=== PATIENT | female | born 1950 | race Caucasian/White ===

== ENCOUNTER 2016-09-25 08:29 | Emergency (ER) | payer MEDICARE, OTHER ==
[2016-09-25 08:57] VITALS: BP 112/64
--- NOTE | 2016-09-25 12:55 | UC ---
Moi Noyola Claudia, scribed for Florencia Yusuf DO on 09/25/16 at 0905 . Complaint Female HPI - HPI Summary HPI Summary: 66 year old female presents to the [facility] with Sx. Pt notes sudden onset of Sx yesterday am. She admits to,dysuria, odorous urine, urgency and frequency of urination. Pt denies fever, chills, cough, SOB, CP, abd pain, back pain, hematuria, N/V/D. Pt thinks her Sx are similar to UTI. Pt notes that she has frequent UTI's and had her last one in July. She notes that she has had 4-5 UTI's in the last year. Pt also notes that she takes a daily probiotic as well. PMHx of Kidney Stones - History Of Current Complaint Chief Complaint: UCGU Stated Complaint: UTI Hx Obtained From: Patient Hx Last Menstrual Period: N/A Onset/Duration: Sudden Onset, Lasting Days, Still Present Timing: Constant Severity Initially: Mild Severity Currently: Mild Character: Burning Aggravating Factor(s): Nothing Alleviating Factor(s): Nothing Associated Signs And Symptoms: Negative: Fever, Back Pain, Vaginal Bleeding/ Discharge, Vaginal Discharge, Nausea - Allergies/Home Medications Allergies/Adverse Reactions: Allergies Allergy/AdvReac Type Severity Reaction Status Date / Time Celecoxib [From Celebrex] Allergy Intermediate Hives Verified 09/25/16 08:48 Sulfa Drugs Allergy Intermediate Hives Verified 09/25/16 08:48 Fentanyl AdvReac Intermediate Vomiting Verified 09/25/16 08:48 Tramadol AdvReac Intermediate Nausea And Verified 09/25/16 08:48 Vomiting PMH/Surg Hx/FS Hx/Imm Hx Previously Healthy: Yes Endocrine History Of: Denies: Diabetes, Thyroid Disease, Hyperthyroidism, Hypothyroidism, Dyslipidemia Cardiovascular History Of: Denies: Cardiac Disorders, Hypertension - QUESTIONABLE, Pacemaker/ICD, Myocardial Infarction, Congestive Heart Failure, Atrial Fibrillation, Deep Vein Thrombosis, Bleeding Disorders Respiratory History Of: Denies: COPD, Asthma, Bronchitis, Pneumonia, Pulmonary Embolism GI/ History Of: Reports: Gastroesophageal Reflux, Ulcer - stomach Denies: Gastrointestinal Bleed, Gall Bladder Disease, Kidney Stones, Diverticulitis, Renal Disease, Urosepsis Neurological History Of: Reports: Migraine Denies: TIA, CVA, Dementia, Seizures Psychological History Of: Denies: Anxiety, Depression, Bipolar Disorder, Schizophrenia, Post Traumatic Stress Disorder Cancer History Of: Denies: Lung Cancer, Colorectal Cancer, Breast Cancer, Prostate Cancer, Cervical Cancer Other History Of: Negative For: HIV, Hepatitis B, Hepatitis C, Anticoagulant Therapy - Surgical History Surgical History: Yes Surgery Procedure, Year, and Place: LASIX eye surgeryHYSTERECTOMYKIDNEY STONE - SURG REMOVED IN URETERVARICOSE VEINSBREAST BIOPSY - Lt - REMOVED LUMP - QUESTIONABLE CANCEROUSBREAST BIOPSY - Rt - BENIGN - Family History Known Family History: Positive: Cardiac Disease, Hypertension, Other - daughter w/ breast cancer Negative: Diabetes - Social History Occupation: Retired Lives: With Family Alcohol Use: None Substance Use Type: None Substance Use Comment - Amount & Last Used: Nucynta Smoking Status (MU): Never Smoked Tobacco Review of Systems Constitutional: Negative - No fever chills Skin: Negative Eyes: Negative ENT: Negative Respiratory: Negative - No SOB, cough Cardiovascular: Negative - No CP Gastrointestinal: Negative - No abd pain, N/V/D. Genitourinary: Dysuria, Frequency, Urgency Motor: Negative Neurovascular: Negative Musculoskeletal: Negative Neurological: Negative Psychological: Negative All Other Systems Reviewed And Are Negative: Yes Physical Exam Triage Information Reviewed: Yes Appearance: Well-Appearing - appears younger than stated age, No Pain Distress, Well-Nourished Vital Signs: Initial Vital Signs Temp 99.5 F 09/25/16 08:51 Pulse 72 09/25/16 08:51 Resp 16 09/25/16 08:51 BP 112/64 09/25/16 08:51 Pulse Ox 95 09/25/16 08:51 Vital Signs Reviewed: Yes Eye Exam: Normal Eyes: Positive: Conjunctiva Clear. Negative: Discharge ENT Exam: Normal ENT: Positive: Hearing grossly normal. Negative: Muffled/hoarse voice Neck exam: Normal Neck: Positive: Supple Respiratory Exam: Normal Respiratory: Positive: Lungs clear, Normal breath sounds, No respiratory distress, No accessory muscle use Cardiovascular Exam: Normal Cardiovascular: Positive: RRR, No Murmur Abdominal Exam: Normal Abdomen Description: Positive: Nontender, Soft. Negative: CVA Tenderness (R), CVA Tenderness (L), Distended, Guarding Bowel Sounds: Positive: Present Musculoskeletal Exam: Normal Musculoskeletal: Positive: Strength Intact Neurological Exam: Normal Neurological: Positive: Alert, Muscle Tone Normal Psychological Exam: Normal Psychological: Positive: Age Appropriate Behavior Skin Exam: Normal, Other - dr, warm, nml color Complaint Female Dx - Differential Dx/Diagnosis Differential Diagnosis/HQI/PQRI: Renal Colic, Urinary Tract Infection Provider Diagnoses: uti, hematuria Discharge - Discharge Plan Condition: Stable Disposition: HOME Prescriptions: Ciprofloxacin TAB* [Cipro Tab*] 250 mg PO BID #6 tab Patient Education Materials: Urinary Tract Infection in Women (ED), Hematuria ( ED) Referrals: Chhaya Murillo MD [Primary Care Provider] - (FOLLOW UP IN 2 DAYS IF NOT IMPROVING. OTHERWISE FOLLOW UP IN 2 WEEKS.) Additional Instructions: CIPROFLOXACIN: You have been given a new antibacterial agent, ciprofloxacin (Cipro). This medicine is not related to the penicillins, sulfas, cephalosporins, or tetracyclines. It is often given to patients who are allergic to these drugs. It has been chosen for you either because other drugs are not appropriate, or because of the nature of your problem. Cipro should not be taken with antacids, as these can decrease its effectiveness. It can be taken without regard to meals. CIPRO SHOULD NOT BE TAKEN BY CHILDREN, NURSING WOMEN, OR WOMEN. Although Cipro is usually well-tolerated, common side effects can include nausea and diarrhea. Contact your doctor if you experience any unusual symptoms while on this medication, such as joint pain or swelling, shortness of breath, wheezing, faintness, or hives. ANY TIME YOU TAKE AN ANTIBIOTIC, IT IS IMPORTANT TO REPLENISH THE BODY'S BALANCE OF "GOOD" BACTERIA BY EATING HIGH QUALITY CULTURED FOOD SUCH YOGURT, SAURKRAUT OR BON CHI AND/OR TAKING A PROBIOTIC SUPPLEMENT. The documentation as recorded by the Moi powell Claudia accurately reflects the service I personally performed and the decisions made by , Florencia Yusuf DO.
== END 2016-09-25 10:31 | disposition home or self-care (01) ==
LOC: UCEAST 08:29
DX: N39.0 Urinary tract infection, site not specified (principal); R31.9 Hematuria, unspecified; Z87.442 Personal history of urinary calculi; Z79.899 Other long term (current) drug therapy; Z88.2 Allergy status to sulfonamides
CPT/HCPCS: 81002; 87077; 87086; 87186; 99212; G0463

== ENCOUNTER 2017-03-26 08:24 | Emergency (ER) | payer MEDICARE, OTHER ==
[2017-03-26 08:35] VITALS: BP 130/76
--- NOTE | 2017-03-26 10:35 | UC ---
Kevin Noyola Angela, scribed for Dickson Smith MD on 03/26/17 at 0849 . Complaint Female HPI - HPI Summary HPI Summary: This pt is a 66 y/o female presenting to [facility] c/o dysuria and urinary frequency x1 week, worsening since yesterday. Pt reports associated mild lower back and mild low abd pain. Pt states that last weekend her symptoms were moderate and yesterday they worsened. Pt notes she has frequent UTIs and these symptoms are similar. She denies hematuria, fever, chills, diarrhea, nausea, vomiting. Pt reports a PMHx of kidney stones, but today's pain are not consistent with prior episode. - History Of Current Complaint Chief Complaint: UCGU Stated Complaint: UTI COMPLAINT Time Seen by Provider: 03/26/17 08:35 Hx Obtained From: Patient Hx Last Menstrual Period: N/A Onset/Duration: Lasting Days Timing: Constant Associated Signs And Symptoms: Positive: Back Pain. Negative: Fever, Vaginal Bleeding/Discharge, Nausea - Allergies/Home Medications Allergies/Adverse Reactions: Allergies Allergy/AdvReac Type Severity Reaction Status Date / Time Celecoxib [From Celebrex] Allergy Intermediate Hives Verified 03/26/17 08:28 Sulfa Drugs Allergy Intermediate Hives Verified 03/26/17 08:28 Fentanyl AdvReac Intermediate Vomiting Verified 03/26/17 08:28 Tramadol AdvReac Intermediate Nausea And Verified 03/26/17 08:28 Vomiting PMH/Surg Hx/FS Hx/Imm Hx GI/ History: Ulcer - stomach, Kidney Stones Other History Of: Negative For: HIV, Hepatitis B, Hepatitis C, Anticoagulant Therapy - Surgical History Surgical History: Yes Surgery Procedure, Year, and Place: LASIX eye surgeryHYSTERECTOMYKIDNEY STONE - SURG REMOVED IN URETERVARICOSE VEINSBREAST BIOPSY - Lt - REMOVED LUMP - QUESTIONABLE CANCEROUSBREAST BIOPSY - Rt - BENIGN - Family History Known Family History: Positive: Cardiac Disease, Hypertension, Other - daughter w/ breast cancer Negative: Diabetes - Social History Alcohol Use: None Substance Use Type: None Substance Use Comment - Amount & Last Used: Nucynta Smoking Status (MU): Never Smoked Tobacco Review of Systems Constitutional: Negative - fever, chills Skin: Negative ENT: Negative Respiratory: Negative Cardiovascular: Negative Gastrointestinal: Negative - diarrhea, vomiting, nausea, Other - POSITIVE: lower abd pain Genitourinary: Dysuria, Frequency Neurovascular: Negative Musculoskeletal: Negative Neurological: Negative All Other Systems Reviewed And Are Negative: Yes Physical Exam Triage Information Reviewed: Yes Vital Signs: Initial Vital Signs Temp 98.6 F 03/26/17 08:30 Pulse 72 03/26/17 08:30 Resp 16 03/26/17 08:30 BP 130/76 03/26/17 08:30 Pulse Ox 98 03/26/17 08:30 Vital Signs Reviewed: Yes - Additional Comments General: well-appearing, no acute distress Skin: warm, color reflects adequate perfusion, dry Head: normal Eyes: EOMI, DIAMOND ENT: normal Neck: supple, nontender Respiratory: CTA, breath sounds present Cardiovascular: RRR Abdomen: soft, minimal suprapubic tenderness to palpation. Bowel: present Musculoskeletal: normal, strength/ROM intact. Minimal right CVA tenderness to percussion. Neurological: normal, sensory/motor intact, A&O x3 Psychological: affect/mood appropriate Complaint Female Dx - Course Course Of Treatment: This pt is a 66 y/o female presenting to [facility] c/o dysuria and urinary frequency x1 week, worsening since yesterday. Pt reports associated mild lower back and mild low abd pain. Pt states that last weekend her symptoms were moderate and yesterday they worsened. Pt notes she has frequent UTIs and these symptoms are similar. She denies fever, chills, diarrhea, nausea, vomiting. Pt reports a PMHx of kidney stones, but today's pain are not consistent with prior episode. Elevated BP noted and advised to follow up with PCP. Medications reviewed. Urinalysis is consistent with UTI. Pt will be discharged with Macrobid and Pyridium. MEDICATIONS REVIEWED - Differential Dx/Diagnosis Provider Diagnoses: Urinary tract infection Discharge - Discharge Plan Condition: Stable Disposition: HOME Prescriptions: Nitrofurantoin Monohyd Macro [Macrobid] 100 mg PO BID #20 cap Phenazopyridine 200 mg (NF) [Pyridium 200 MG tab *] 200 mg PO TID PRN #10 tab PRN Reason: Pain Patient Education Materials: Urinary Tract Infection in Women (ED) Referrals: Chhaya Murillo MD [Primary Care Provider] - Additional Instructions: FOLLOW UP WITH YOUR DOCTOR. GET RECHECKED FOR ANY WORSENING OF YOUR CONDITION; PAIN, FEVER, YOU FEEL ILL OR QUESTIONS OR CONCERNS. The documentation as recorded by the Kevin powell Angela accurately reflects the service I personally performed and the decisions made by me, Dickson Smith MD.
== END 2017-03-26 08:57 | disposition home or self-care (01) ==
LOC: UCEAST 08:24
DX: N39.0 Urinary tract infection, site not specified (principal); Z87.442 Personal history of urinary calculi; Z88.5 Allergy status to narcotic agent; Z88.2 Allergy status to sulfonamides
CPT/HCPCS: 81003; 87077; 87086; 87186; 99212; G0463

== ENCOUNTER 2017-04-16 07:47 | Emergency (ER) | payer MEDICARE, OTHER ==
[2017-04-16 08:08] VITALS: BP 150/92
--- NOTE | 2017-04-16 08:16 | UC ---
Complaint Female HPI - HPI Summary HPI Summary: YESTERDAY URINARY FREQUENCY, URGENCY, BURNING WITH URINATION, FREQUENCY. NO FEVER. NO BACK PAIN. NO ABDOMINAL PAIN. - History Of Current Complaint Chief Complaint: UCGU Stated Complaint: URINARY ISSUE Time Seen by Provider: 04/16/17 08:00 Hx Obtained From: Patient Hx Last Menstrual Period: N/A Onset/Duration: Gradual Onset, Lasting Days, Still Present Timing: Intermittent Severity Initially: Mild Severity Currently: Mild Character: Burning Aggravating Factor(s): Urination Associated Signs And Symptoms: Negative: Fever, Back Pain, Vaginal Bleeding/ Discharge, Vaginal Discharge, Nausea, Vomiting(# Of Episodes =) - Risk Factors Ectopic Risk Factor: Negative Ovarian Torsion Risk Factor: Negative - Allergies/Home Medications Allergies/Adverse Reactions: Allergies Allergy/AdvReac Type Severity Reaction Status Date / Time Celecoxib [From Celebrex] Allergy Intermediate Hives Verified 03/26/17 08:28 Sulfa Drugs Allergy Intermediate Hives Verified 03/26/17 08:28 Fentanyl AdvReac Intermediate Vomiting Verified 03/26/17 08:28 Tramadol AdvReac Intermediate Nausea And Verified 03/26/17 08:28 Vomiting PMH/Surg Hx/FS Hx/Imm Hx Previously Healthy: Yes Other History Of: Negative For: HIV, Hepatitis B, Hepatitis C, Anticoagulant Therapy - Surgical History Surgical History: Yes Surgery Procedure, Year, and Place: LASIX eye surgeryHYSTERECTOMYKIDNEY STONE - SURG REMOVED IN URETERVARICOSE VEINSBREAST BIOPSY - Lt - REMOVED LUMP - QUESTIONABLE CANCEROUSBREAST BIOPSY - Rt - BENIGN - Family History Known Family History: Positive: Cardiac Disease, Hypertension, Other - daughter w/ breast cancer Negative: Diabetes, Renal Disease - Social History Lives: With Family Alcohol Use: None Substance Use Type: None Substance Use Comment - Amount & Last Used: Nucynta Smoking Status (MU): Never Smoked Tobacco Review of Systems Constitutional: Negative Skin: Negative Eyes: Negative ENT: Negative Respiratory: Negative Cardiovascular: Negative Gastrointestinal: Negative Genitourinary: Dysuria, Frequency, Urgency Motor: Negative Neurovascular: Negative Musculoskeletal: Negative Neurological: Negative Psychological: Negative Is Patient Immunocompromised?: No All Other Systems Reviewed And Are Negative: Yes Physical Exam Triage Information Reviewed: Yes Appearance: Well-Appearing, No Pain Distress, Well-Nourished Vital Signs: Initial Vital Signs Temp 97.2 F 04/16/17 08:06 Pulse 78 04/16/17 08:06 Resp 18 04/16/17 08:06 BP 150/92 04/16/17 08:06 Pulse Ox 99 04/16/17 08:06 Vital Signs Reviewed: Yes Eye Exam: Normal ENT Exam: Normal ENT: Positive: Normal ENT inspection, TMs normal Dental Exam: Normal Neck exam: Normal Neck: Positive: Supple, Nontender, No Lymphadenopathy Respiratory Exam: Normal Respiratory: Positive: Chest non-tender, Lungs clear, Normal breath sounds, No respiratory distress Cardiovascular Exam: Normal Cardiovascular: Positive: RRR, No Murmur, Pulses Normal, Brisk Capillary Refill Abdominal Exam: Normal Abdomen Description: Positive: Nontender, No Organomegaly Musculoskeletal Exam: Normal Musculoskeletal: Positive: Strength Intact, ROM Intact Neurological Exam: Normal Psychological Exam: Normal Skin Exam: Normal Complaint Female Dx - Differential Dx/Diagnosis Differential Diagnosis/HQI/PQRI: Cervicitis, Ovarian Torsion, Urinary Tract Infection Provider Diagnoses: URINARY TRACT INFECTION Discharge - Discharge Plan Condition: Stable Disposition: HOME Prescriptions: Ciprofloxacin TAB* [Cipro 500 MG TAB*] 500 mg PO BID #10 tab Patient Education Materials: Urinary Tract Infection in Women (ED) Referrals: Chhaya Murillo MD [Primary Care Provider] -
--- NOTE | 2017-04-18 18:31 | ED ---
Progress - Progress Note Progress Note: NO CHANGE Course/Dx - Diagnoses Provider Diagnoses: UTI (urinary tract infection)
== END 2017-04-16 08:15 | disposition home or self-care (01) ==
LOC: UCEAST 07:47
DX: N39.0 Urinary tract infection, site not specified (principal); B96.20 Unspecified Escherichia coli [E. coli] as the cause of diseases classified elsewhere; Z87.442 Personal history of urinary calculi; Z90.710 Acquired absence of both cervix and uterus; Z88.2 Allergy status to sulfonamides; Z88.8 Allergy status to other drugs, medicaments and biological substances
CPT/HCPCS: 81003; 87077; 87086; 87186; 99212; G0463

== ENCOUNTER 2017-05-10 10:49 | Day surgery (SDC) | payer MEDICARE, OTHER ==
[~2017-05-10 10:49] MED LIST: Acetaminophen TAB* 325 MG PO PRN; Buffered Lidocaine 0.9% SYRIN* 5 ML/SYR SYRINGE INTRADERM ONE
[2017-05-10] MEDS ORDERED: Lidocaine 1% MPF* 2 ML VIAL ONE (11:42)
[2017-05-10] MEDS ORDERED: Neomycin/Polymy/Dex OPTH.SUSP* MAXITROL 0.1% 5 ML ONE (11:42)
[2017-05-10] MEDS ORDERED: Phenylephrine 2.5% OPTH.SOL* 2 ML BTL ONE (11:42)
[2017-05-10] MEDS ORDERED: Povidone Iodine 5% OPTH* 30 ML BTL ONE (11:42)
[2017-05-10] MEDS ORDERED: acetaZOLAMIDE TAB* 250 MG ONE (11:42)
[2017-05-10] MEDS ORDERED: Ketorolac 0.5% OPHTH (NF) 0.5 % 5 ML BTL ONE (11:42)
[2017-05-10] MEDS ORDERED: Cyclopentolate 1% OPTH.SOL* 2 ML BTL ONE (11:42)
[2017-05-10] MEDS ORDERED: Lidocaine 2% EPI 1:200000 MPF* 20 ML VIAL ONE (11:42)
[2017-05-10] MEDS ORDERED: Buffered Lidocaine 0.9% SYRIN* 5 ML/SYR SYRINGE ONE (11:43)
[2017-05-10] MEDS ORDERED: Proparacaine 0.5% OPHTH.SOL* 15 ML BTL ONE (11:43)
[2017-05-10] MEDS ORDERED: Midazolam* 1 MG/ML 2 ML VIAL (2 MG) ONE (13:54)
[2017-05-10 14:27] VITALS: BP 123/53
--- NOTE | 2017-05-10 16:43 | OP ---
DATE OF OPERATION: 05/10/2017 - [facility] DATE OF : 1950. SURGEON: Kevin Stewart M.D. PREOPERATIVE DIAGNOSIS: Cataract right eye. POSTOPERATIVE DIAGNOSIS: Cataract right eye. OPERATIVE PROCEDURE: Phacoemulsification right eye with IOL. DESCRIPTION OF PROCEDURE: The patient was brought to the operating room after being given 1/2% Alcaine with epinephrine drops in the preoperative area. The eye was prepped and draped in the usual sterile fashion. Sterile drape and eyelid speculum were placed. Again, topical 1/2% Alcaine with epinephrine was given. A paracentesis incision was made at the 9 o'clock position with the No.75 blade. Clear cornea incision 2.2 x 2.2-mm was created at the 12 o'clock position starting at the anterior limbus using the 2.2-mm keratome. The anterior chamber was irrigated with 0.4 mL of 1% non-preservative intracameral lidocaine and filled with DisCoVisc. A capsulorrhexis was completed using the cystotome and the Utrata forceps. Hydrodissection was performed with balanced salt solution. The lens nucleus was removed with the Phacoemulsification handpiece without incident. Cortex was removed with the irrigation-aspiration handpiece. The capsular bag was re-inflated using DisCoVisc and an [id number] implant was inserted with the shooter. The irrigation-aspiration handpiece was used to remove all residual DisCoVisc. The eye was refilled with balanced salt solution and the wound checked and found to be watertight. Topical Maxitrol drops were given. [id number]/[facility] #: [id number] [facility]
== END 2017-05-10 14:34 | disposition home or self-care (01) ==
LOC: OREAST 10:49
PROVIDERS: ATTEND Specialist
DX: H25.811 Combined forms of age-related cataract, right eye (principal); I10 Essential (primary) hypertension; E78.5 Hyperlipidemia, unspecified; G89.29 Other chronic pain; Z79.899 Other long term (current) drug therapy; M19.90 Unspecified osteoarthritis, unspecified site; K21.9 Gastro-esophageal reflux disease without esophagitis
CPT/HCPCS: A9270-GY; J2250; V2632

== ENCOUNTER 2019-06-19 06:37 | Day surgery (SDC) | payer MEDICARE ==
[~2019-06-19 06:37] MED LIST changes: -Acetaminophen TAB* 325 MG PO PRN; -Buffered Lidocaine 0.9% SYRIN* 5 ML/SYR SYRINGE INTRADERM ONE; +Buffered Lidocaine 1% SYRIN* 1 ML/SYRINGE INTRADERM ONE
[2019-06-19] MEDS ORDERED: Cyclopentolate 1% OPTH.SOL* 2 ML BTL ONE (07:53)
[2019-06-19] MEDS ORDERED: Povidone Iodine 5% OPTH* 30 ML BTL ONE (07:53)
[2019-06-19] MEDS ORDERED: Phenylephrine OPHTH SOL 2.5%* 2 ML ONE (07:53)
[2019-06-19] MEDS ORDERED: Lidocaine 2% w/ EPI 1:200,000* 20 ML SDV VIAL ONE (07:53)
[2019-06-19] MEDS ORDERED: Neomycin/Polymy/Dex OPTH.SUSP* MAXITROL 0.1% 5 ML ONE (07:53)
[2019-06-19] MEDS ORDERED: Ketorolac 0.5% OPHTH (NF) 0.5 % 5 ML BTL ONE (07:53)
[2019-06-19] MEDS ORDERED: Lidocaine 1% MPF ** 5 ML VIAL ONE (07:53)
[2019-06-19] MEDS ORDERED: Proparacaine 0.5% OPHTH.SOL* 15 ML BTL ONE (07:54)
[2019-06-19] MEDS ORDERED: Midazolam* 1 MG/ML 2 ML VIAL (2 MG) ONE ×2 (08:10→08:29)
[2019-06-19 09:02] VITALS: BP 127/53
--- NOTE | 2019-06-19 09:55 | OP ---
DATE OF OPERATION: 06/19/2019. DATE OF : 1950. SURGEON: Kevin Stewart M.D. PREOPERATIVE DIAGNOSIS: Cataract left eye. POSTOPERATIVE DIAGNOSIS: Cataract left eye. OPERATIVE PROCEDURE: Extracapsular cataract extraction with intraocular lens implant left eye. PROCEDURE: The patient was brought to the operating room after being given 1/2% Alcaine with epineph rine drops in the preoperative area. The eye was prepped and draped in the usual sterile fashion. S terile drape and eyelid speculum were placed. Again, topical 1/2% Alcaine with epinephrine was given . A paracentesis incision was made at the 3 o'clock position with the No.75 blade. Clear cornea inc ision 2.2 x 2.2-mm was created at the 6 o'clock position starting at the anterior limbus using the 2. 2-mm keratome. The anterior chamber was irrigated with 0.4 mL of 1% non-preservative intracameral li docaine and filled with DisCoVisc. A capsulorrhexis was completed using the cystotome and the Utrata forceps. Hydrodissection was performed with balanced salt solution. The lens nucleus was removed wi th the Phacoemulsification handpiece without incident. Cortex was removed with the irrigation-aspira tion handpiece. The capsular bag was re-inflated using DisCoVisc and an [id number] implant was insert ed with the shooter. The irrigation-aspiration handpiece was used to remove all residual DisCoVisc. The eye was refilled with balanced salt solution and the wound checked and found to be watertight. Topical Maxitrol drops were given. [id number]/[facility] #: [id number]
== END 2019-06-19 08:55 | disposition home or self-care (01) ==
LOC: OREAST 06:37
PROVIDERS: ATTEND Specialist
DX: H25.812 Combined forms of age-related cataract, left eye (principal); H26.491 Other secondary cataract, right eye; I10 Essential (primary) hypertension; K21.9 Gastro-esophageal reflux disease without esophagitis; Z96.1 Presence of intraocular lens; Z88.1 Allergy status to other antibiotic agents; Z88.5 Allergy status to narcotic agent; Z88.0 Allergy status to penicillin; Z88.2 Allergy status to sulfonamides
CPT/HCPCS: A9270-GY; J2250; V2632